=== PATIENT | male | born 2000 ===

== ENCOUNTER 2025-07-28 01:36 | Emergency (ER) | payer OTHER, SELFPAY ==
--- OUTSIDE RECORDS SUMMARY | 2009-10-08 12:11 | XMS_ITS | Continuity of Care Document ---
Author Organization [facility] Address [address] [place] [address] Phone Care Team Providers Care Electrical Panel Builder Name Role Phone Unavailable Unavailable Unavailable Allergies, Adverse Reactions, Alerts Substance Reaction Status Criticality No Known allergies Medications Medication Instructions Dosage Effective Dates (start - stop) Status Comments ProAir HFA 90 mcg/Actuation Aerosol Inhaler 1-2 PUFFS Q2-4 HRS prn cough - Active Aerochamber Max - Mask Medium for use with inhaler - Active Procedures Procedure Date Screening visual acuity,raymundo bilat Pure tone hearing screen, air 9 Screening visual acuity,raymundo bilat Office/outpatient visit,est, mod 2008 Flu vac, split, 3+ years, intramusc Immuniz admnin, 1 vac, sngl/combo Preventive checkup, est,5-11 yrs 2007 Flu vac, split, 3+ years, intramusc Immuniz admnin, 1 vac, sngl/combo Preventive checkup, est,5-11 yrs 2006 Immuniz admnin, 1 vac, sngl/combo Varicella virus vac, live, subcut Pure tone hearing screen, air 7 TB intradermal test Screening visual acuity,raymundo bilat Urinalysis, non-automated, w/scope Advance Directives Directive Yes / No Effective Date File Name No Information Encounters Encounter Description Practice Location Reason(s) For Visit Diagnoses Date Provider Providers Copied on Encounter [facility], [address], [place], [place], [id number], [place] tel:[phone] [facility] Practice No Information 9 No Information Office/outpat ient visit,est, mod [facility], [address], [place], [place], [id number], [place] tel:[phone] [facility] Pediatrics cough (chief complaint)c heck hearing (chief complaint)c heck vision (chief complaint) REFRACTION DISORDER NECCOUGH VARIANT ASTHMA 9 No Information [facility], [address], [place], [place], [id number], [place] tel:[phone] [facility] Practice flu vaccine (chief complaint) No Information 9 No Information Preventive checkup, est,5-11 yrs [facility], [address], [place], [place], [id number], [place] tel:[phone] [facility] Family Practice physical exam (chief complaint)f mariam inj (chief complaint) [facility] EXAMND VAC HMOPHLUS INFLNCande [facility] EXAM 8 No Information Preventive checkup, est,5-11 yrs [facility], [address], [place], [place], [id number], [place] tel:[phone] [facility] Pediatrics well visit (chief complaint) No Information 7 No Information [facility], [address], [place], [place], [id number], [place] tel:[phone] [facility] Practice lab test (chief complaint)w ic form (chief complaint) ARTHROPATHY NOS-UNSPEC 7 No Information Family History Family Member Type Diagnosis Age At Onset No Information Immunizations Vaccine Date Status Comments Flu Vaccine, with pres (3yrs and older) administered Source: New Immuniza tion Record Flu Vaccine, with pres (3yrs and older) administered Source: New Immuniza tion Record varicella administered Source: New Imm unization Record polio, inactivated (IPV) administered Lashonda rce: New Immunization Record DTaP administered Source: New Imm unization Record MMR administered Source: New Imm unization Record polio, inactivated (IPV) administered Lashonda rce: New Immunization Record DTaP administered Source: New Imm unization Record Comvax administered Source: New Imm unization Record MMR administered Source: New Imm unization Record varicella administered Source: New Imm unization Record pneumo (under 5) (PCV) administered Sourc e: New Immunization Record DTaP administered Source: New Imm unization Record pneumo (under 5) (PCV) administered Sourc e: New Immunization Record polio, inactivated (IPV) administered Lashonda rce: New Immunization Record DTaP administered Source: New Imm unization Record Comvax administered Source: New Imm unization Record pneumo (under 5) (PCV) administered Sourc e: New Immunization Record polio, inactivated (IPV) administered Lashonda rce: New Immunization Record DTaP administered Source: New Imm unization Record Comvax administered Source: New Imm unization Record Payers Payer name Insurance type Covered republican ID Authorreaa apollo[id number] Social History Type Description Quantity Date Captured Comments Sex Male Smoking Status No Information Chief Complaint And Reason For Visit No Information Reason For Referral Reason For Referral No Information History Of Present Illness Encounter Date Complaint History Of Prese nt Illness No Information Functional Status Date Functional Assessmen t No Information Instructions Date Instruction Additional Infor mation No Information Assessments Type Assessment Date No Information Patient Care Teams Name Effective Dates (start - stop) Status Members No Information
[2025-07-28 01:40] VITALS: BP 118/68; PULSE 85; RESP 20; TEMP 36.7; O2SAT 99; BMI 30.4
[2025-07-28 02:15] LABS: MANUAL DIFF FLAG NO
[2025-07-28 02:16] LABS: Hematocrit 43.3 % (42.0-52.0); Hemoglobin 15.7 g/dl (14.0-18.0); Imm Gran Abs Auto 0.03 X10*3/uL (0.00-0.03); Imm Gran Pct Auto 0.4 % (0.0-0.4); Lymphocytes Absolute Auto 2.4 X10*3/uL (1.2-4.9); Mean Corpuscular HGB Conc 36.3 g/dl (31.0-36.0); Mean Corpuscular Hemoglobin 29.6 pg (27.0-33.0); Mean Corpuscular Volume 81.7 fL (80.0-98.0); NRBC Abs Auto 0.000 X10*3/uL (0.0-0.012); NRBC Pct Auto 0.0 /100WBC (0.0-0.2); Platelet Count 205 X10*3/uL (160-400); Red Blood Count 5.30 X10*6/uL (4.60-5.80); White Blood Count 7.5 X10*3/uL (4.8-10.8)
--- OUTSIDE RECORDS SUMMARY | 2025-07-28 02:36 | XMS_ITS | Clinical Summary ---
Author Organization [facility] Address [address] [place] [id number] Care Team Providers Care Bat Carrier Name Role Phone Holly Amador PA-C Primary Care Provider Allergies Active Allergy Reactions Criticality Noted Date Comments Nka 06/15/2016 Medications Medication Sig Dispensed Refills Start Date End Date Status acetaminophen (TYLENOL) 325 MG tablet Take by mouth every 6 (six) hours as needed for Pain Reported on 08/02/2017 0 Active ibuprofen (ADVIL,MOTRIN) 800 MG tablet Take by mouth every 6 (six) hours as needed for Pain Reported on 08/02/2017 0 Active Active Problems Problem Noted Date Diagnosed Date Sprain of anterior cruciate ligament of right kn ee 06/28/2017 Immunizations Name Administration Dates Next Due DTaP 03/14/2007, 4,2002,08/15,2002 HIB (PRP-T) ActHIB / Hiberix - 4 dose series 02/01/2004,2002,2002,06/15 HPV Quadrivalent 05/01/2015 Hepatitis A (Pediatric) 02/28/2014,06/25/2011 Hepatitis B (Pediatric / Ado lescent) (inactive) 01/30/2003,2002,2002 IPV 03/14/2007, 2,2002,06/15 Influenza TIV (IM) (inactive) 11/17/2011, 006 MMR 11/26/2006,07/06/2003 Meningococcal Conjugate (Menveo) 02/28/2014 Pneumococcal Conjugate PCV7 08/08/2004,0 01/30/2003,2002,06/15 Tdap 02/28/2014 Varicella 11/26/2006,07/06/2003 Family History Medical History Relation Name Comments No Sig Med Hx Brother 2 Hypertension Mother Relation Name Status Comments Brother 1 Rahul Alive Brother 2 Father Alive Mother Alive Social History Tobacco Use Types Packs/Day Years Used Date Smoking Tobacco: Never Smokeless Tobacco: Never Alcohol Use Standard Drinks/Week Comments No 0 (1 standard drink = 0.6 oz pur e alcohol) Sex and Gender Information Value Date Recorded Sex Assigned at Not on file Gender Identity Not on file Sexual Orientation Not on file Last Filed Vital Signs Vital Sign Reading Time Taken Comments Blood Pressure 108/72 09/29/2017 8:08 AM EST Pulse 73 09/29/2017 8:08 AM EST Temperature 36.8 C (98.2 F) 09/29/2017 8:08 AM EST Respiratory Rate 18 09/29/2017 8:08 AM EST Oxygen Saturation 98% 09/29/2017 8:08 AM EST Inhaled Oxygen Concentration - - Weight 111.6 kg (246 lb) 09/29/2017 8:08 AM EST Height 174 cm (5' 8.5 ) 09/29/2017 8:08 AM EST Body Mass Index 36.86 09/29/2017 8:08 AM EST Plan of Treatment Health Maintenance Due Date Last Done Comments Hepatitis C Screening 2002 COVID-19 Vaccine (#1) 2002 Depression Screening 06/23/2018 06/23/2017 Preventative Health Evaluation 2020 DTap / Tdap / Td (7 - Td or Tdap) 02/29/2024 02/28/2014, 03/14/2007, 02/01/2004, Additional history exists Influenza Vaccine (#1) 2025 11/17/2011, 2005 Hepatitis B Vaccines Completed 01/30/2003, 2002, 2002 Pneumococcal Vaccine Completed 08/08/2004, 01/30/2003, 2002, Additional history exists RSV Ped < 20 months Aged Out No longe r eligible based on patient's age to complete this topic Care Teams Bat Carrier Relationship Specialty Start Date End Date Holly Amador PA-C PCP - General Family Medicine 05/01/15
--- OUTSIDE RECORDS SUMMARY | 2025-07-28 02:36 | XMS_ITS | Clinical Summary ---
Author Organization [employer] [facility] Address [address] [address] Care Team Providers Care Inventory Control Assistant Name Role Phone Holly Amador Primary Care Provider [phone] Allergies No known active allergies Medications guaiFENesin (MUCINEX) 600 mg Ta12 Take 600 mg by mouth every 12 (twelve) hours. Active pseudoephedrine (SUDAFED) 30 MG tablet Take 30 mg by mouth every 4 (four) hours as needed for congestion. Active cetirizine (ZyrTEC) 10 MG tablet Take 10 mg by mouth daily. Active guaiFENesin (ROBITUSSIN) 100 mg/5 mL syrup Take 200 mg by mouth 3 (three) times a day as needed for cough. Active Social History Tobacco Use Types Packs/Day Years Used Date Smoking Tobacco: Never Smokeless Tobacco: Never Sex and Gender Information Value Date Recorded Sex Assigned at Not on file Legal Sex Male 5:52 PM EDT Gender Identity Not on file Sexual Orientation Not on file Last Filed Vital Signs Vital Sign Reading Time Taken Comments Blood Pressure 124/80 04/02/2018 2:39 PM EDT Pulse 73 04/02/2018 2:39 PM EDT Temperature 37 C (98.6 F) 04/02/2018 2:39 PM EDT Respiratory Rate 16 04/02/2018 2:39 PM EDT Oxygen Saturation 98% 04/02/2018 2:39 PM EDT Inhaled Oxygen Concentration - - Weight 113 kg (250 lb) 04/02/2018 2:39 PM EDT Height - - Body Mass Index - - Plan of Treatment Health Maintenance Due Date Last Done Comments Depression: Screening Annually using PHQ-2/9 in Adults 18 yrs or above (or HM Modifier)([facility]) 2020 Hepatitis C Virus Infection in Adolescents and Adults: Screening (or Modifier) ([facility] ) 2020 SDOH Screening Reminder: Annually for all adults ([facility]) 2020 Tobacco Smoking Cessation: i n Adults excluding Women: Behavioral and Pharmacotherapy Interventions ([facility]) 2020 DTaP/Tdap/Td Vaccines ([facility]) (7 - Td or Tdap) 02/29/2024 02/28/2014, 03/14/2007, 02/01/2004, Additional history exists Flu Vaccination: Yearly for ages 18mos through 64 years (or Modifier)([facility]) 06/08/2025 COVID-19 Vaccine Screening: Initial Series and Booster Status ([facility]) ( season) 2025 Zoster/Shingles Vaccine Series Screening: Adults aged 18+ yrs (or HM Modifiers)([facility]) (1 of 2) 2052 11/26/2006, 07/06/2003 Pneumococcal Vaccination Screening: Pts 0-19 & 19-49 yrs of age ([facility]) Aged Out No longer eligible based on patient's age to complete this topic Medical Devices Not on file Care Teams Inventory Control Assistant Relationship Specialty Start Date End Date Holly Amador PA [address] [place] [address] PCP - General Family Medicine 02/07/18
--- OUTSIDE RECORDS SUMMARY | 2025-07-28 02:36 | XMS_ITS | Clinical Summary ---
Author Organization [facility] Address [address] [place] [address] Care Team Providers Care Chiropractic Care Name Role Phone Itzel Winter DO Primary Care Provider [phone] Encounters Date Type Department Care Team Description 07/16/[address] [phone] Itzel Winter DO Establish Care; nose bleeds; Headache from Last 3 Months Social History Tobacco Use Types Packs/Day Years Used Date Smoking Tobacco: Never Assessed Sex and Gender Information Value Date Recorded Sex Assigned at Male 07/16/2025 4:13 PM EDT Legal Sex Male 4:07 PM EDT Gender Identity Male 07/16/2025 4:13 PM EDT Sexual Orientation Not on file Plan of Treatment Upcoming Encounters Date Type Department Care Team (Late st Contact Info) Description 08/06/2025 4:00 PM EDT Office Visit [address] [phone] Itzel Winter DO [address] [place], [place] [phone] In Person with Physician Health Maintenance Due Date Last Done Comments Blood Pressure 2002 Depression Screening 2006 Meningococcal B Vaccines (1 of 2 - Standard) 2018 Hepatitis C Screening 2020 COVID-19 Vaccine ( - season) 2025 Influenza Vaccine (#1) 2025 11/17/2011, 2005 DTaP,Tdap,and Td Vaccines (8 - Td or Tdap) 04/23/2035 04/23/2025, 02/28/2014, 03/14/2007, Additional history exists Pneumococcal Vaccine: Pediatrics (0 to 5 Years) and At-Risk Patients (6 to 64 Years) Aged Out 08/08/2004, 01/30/2003, 2002, Additional history exists No longer eligible based on patient's age to complete this topic Meningococcal Vaccines Aged Out 02/28/2014 No lo nger eligible based on patient's age to complete this topic Insurance [place] [address] [facility] Care Teams Chiropractic Care Relationship Specialty Start Date End Date Itzel Winter DO [address] [place], [place] [phone] PCP - General Family Practice 07/16/25
--- OUTSIDE RECORDS SUMMARY | 2025-07-28 02:36 | XMS_ITS | Clinical Summary ---
Author Organization [facility] Address [address] [place] [address] Phone Care Team Providers Care Transportation Maintenance Operator Name Role Phone Gilberto Lou MD Primary Care Provider Allergies No known active allergies Medications No known medications Immunizations Immunization Administration Dates Next Due Tdap 04/23/2025 Social History Tobacco Use Types Packs/Day Years Used Date Smoking Tobacco: Never Smokeless Tobacco: Never Tobacco Cessation:Counseling Given: Not Answered Alcohol Use Standard Drinks/Week Comments Not Currently 0 (1 standard drink = 0.6 oz pur e alcohol) Education Answer Date Recorded Are you interested in more education? Not on issac e 04/24/2025 Are you concerned about learning? Not on file 04/24/2025 No 04/24/2025 No 04/24/2025 Digital Access Answer Date Recorded No 04/24/2025 No 04/24/2025 Reliable internet access at home? Not on file 04/24/2025 Device with a working camera? Not on file Intimate Partner Violence Answer Date R ecorded Are you denied basic needs s uch as food, clothing, or medical care? No 04/23/2025 In the past 12 months have y ou been in a relationship with a person who hurts, threatens, or tries to control you? No 04/23/2025 Are you denied basic needs s uch as food, clothing, or medical care? No 04/23/2025 In the past 12 months have y ou been in a relationship with a person who hurts, threatens, or tries to control you? No 04/23/2025 Sex and Gender Information Value Date Recorded Sex Assigned at Male 04/23/2025 10:53 PM EDT Legal Sex Male 9:33 PM EDT Gender Identity Male 04/23/2025 10:53 PM EDT Sexual Orientation Straight 04/23/2025 10 :53 PM EDT Last Filed Vital Signs Vital Sign Reading Time Taken Comments Blood Pressure 113/80 04/24/2025 1:14 AM EDT Pulse 55 04/24/2025 1:14 AM EDT Temperature 37 C (98.6 F) 04/24/2025 1:14 AM EDT Respiratory Rate 18 04/24/2025 1:14 AM EDT Oxygen Saturation 99% 04/24/2025 1:14 AM EDT Inhaled Oxygen Concentration - - Weight 99.8 kg (220 lb) 04/23/2025 9:44 PM EDT Height 172.7 cm (5' 8 ) 04/23/2025 9:44 PM EDT Body Mass Index 33.45 04/23/2025 9:44 PM EDT Plan of Treatment Not on file Medical Devices Not on file Insurance O POS EPO [employer] O POS EPO AET HMO POS EPO HMO POS EPO AET HMO POS EPO [employer] O POS EPO Care Teams Transportation Maintenance Operator Relationship Specialty Start Date End Date Gilberto Lou MD [address] [place] [address] PCP - General Internal Medicine 04/23/25 Additional Source Comments The information contained in this document represents components of the legal health record. It is not the complete legal health record.[facility]
--- OUTSIDE RECORDS SUMMARY | 2025-07-28 02:37 | XMS_ITS | Clinical Summary ---
Author Organization [facility] Address [address] [place] [address] Care Team Providers Care Global Supply Chain Director Name Role Phone Holly Amador PA-C Primary Care Provider [phone] Allergies No known active allergies Medications No known medications Active Problems Problem Noted Date Diagnosed Date Acute pain of right knee 06/02/2017 Social History Tobacco Use Types Packs/Day Years Used Date Smoking Tobacco: Never Smokeless Tobacco: Never Sex and Gender Information Value Date Recorded Sex Assigned at Not on file Legal Sex Male 4:15 PM EDT Gender Identity Not on file Sexual Orientation Not on file Last Filed Vital Signs Vital Sign Reading Time Taken Comments Blood Pressure 129/74 11/07/2021 8:23 AM EST Pulse 90 11/07/2021 8:23 AM EST Temperature 36.1 C (97 F) 11/07/2021 8:23 AM EST Respiratory Rate - - Oxygen Saturation 99% 11/07/2021 8:23 AM EST Inhaled Oxygen Concentration - - Weight 93 kg (205 lb) 11/07/2021 8:23 AM EST Height 172.7 cm (5' 8 ) 11/07/2021 8:23 AM EST Body Mass Index 31.17 11/07/2021 8:23 AM EST Plan of Treatment Health Maintenance Due Date Last Done Comments Hepatitis C Virus Screening 2002 HIV Screening 2015 HPV Vaccines (1 - Male 3-dos e series) 2017 DTaP/Tdap/Td Vaccines (1 - Tdap) 2021 Hepatitis B Vaccines (1 of 3 - 19+ 3-dose series) 2021 Influenza Vaccine 06/08/2025 COVID-19 Vaccine (4 - 2024-2 6 season) 2025 10/24/2021, 03/04/2021, 02/11/2021 Pneumococcal Vaccine: Pediatric (0-5 Years) and At-Risk Patients (6 to 49 Years) Aged Out No longer eligible b ased on patient's age to complete this topic Insurance HMO/POS HMO/POS Care Teams Global Supply Chain Director Relationship Specialty Start Date End Date Holly Amador PA-C [address] [place] [address] PCP - General Internal Medicine 05/31/17
[2025-07-28 02:39] LABS: Alanine Aminotransferase 64 U/L (0-40); Albumin Level 4.7 g/dL (3.5-5.0); Alkaline Phosphatase 83 U/L (39-117); Anion Gap 16 (12-20); Aspartate Amino Transferase 47 U/L (5-37); Blood Urea Nitrogen 23 mg/dL (9-16); Calcium 8.9 mg/dL (8.4-10.2); Carbon Dioxide 19 mmol/L (22-29); Chloride 111 mmol/L (96-108); Creatinine Clr Calc Pharmacy 107.3; Estimated Glomerular Filt Rate > 60; Potassium 3.6 mmol/L (3.3-5.1); Sodium 142 mmol/L (135-145); Total Protein 7.6 g/dL (6.5-8.0)
[2025-07-28 05:44] VITALS: BP 103/53; PULSE 95; RESP 14; TEMP 36.8; O2SAT 98
--- NOTE | 2025-07-28 05:52 | ED.GENADULT ---
HPI - General Adult General Chief complaint: ETOH/Substance Use Stated complaint: ETOH Time Seen by Provider: 07/28/25 05:18 Source: patient Limitations: other (Intoxication) History of Present Illness ED Provider: Josette Arias PA-C HPI narrative: 25-year-old male presents intoxicated. Patient states ?I drank too much?. Patient was with friends, he began vomiting, had a nosebleed which has resolved, they in turn called EMS to the scene. Related Data Allergies Allergy/AdvReac Type Severity Reaction Status Date / Time No Known Allergies Allergy Verified 07/28/25 01:42 Review of Systems Review of Systems: Yes all other systems are reviewed and are negative Constitutional: Constitutional: Denies fatigue and Denies fever(s) ENT: Reports epistaxis Gastrointestinal: Gastrointestinal: Reports nausea and Reports vomiting Endocrine: Endocrine: Denies fatigue PMFSH Past Medical History Attestation statement: The following information was validated with the patient. Social History Social History Alcohol intake: current Smoked in Last 30 Days: No Use of substances other than those prescribed or required for medical reasons: No Advance Directives: No Advance Directives Information Provided: Yes Do you have a plan to hurt others: No Plan Physical Exam ED Vital Signs: Vital Signs - 24 hr 07/28/25 01:40 07/28/25 05:44 Temperature 98.1 F 98.3 F Pulse Rate 85 95 Respiratory Rate 20 14 Blood Pressure 118/68 103/53 L Pulse Oximetry 99 98 Oxygen Delivery Method Room Air Room Air BMI result Body Mass Index 30.4 Const Other: Alert Orientation/consciousness: patient oriented x3 HENMT Other: Alcohol halitosis Resp Effort & Inspection: normal respiratory effort Cardio Other: Normal peripheral perfusion Skin Other: Warm dry no rash Neuro Other: Unsteady gait General: patient oriented x3, no focal motor deficits and CN's II-XI intact bilaterally Psych Other: Cooperative, is intoxicated Medical Decision Making Medical Decision Making [facility] Narrative: 25-year-old male presents intoxicated. Patient states ?I drank too much?. Patient was with friends, he began vomiting, had a nosebleed which has resolved, they in turn called EMS to the scene. No chronic issues History: Per patient I have considered the following differential diagnoses: Alcohol intoxication , alcoholic gastritis, alcohol poisoning Plan: Screening labs in process, the patient is not actively vomiting, his nosebleed resolved, I will monitor him in the emergency department until he is clinically sober. I have independently reviewed the following tests: Labs: No leukocytosis, not anemic, no electrolyte abnormality, ethanol 171 Differential Diagnosis Differential Diagnoses: The differential diagnosis associated with the presentation includes See medical decision-making Admission/Observation Consideration of admission/observation: Escalation of care including admission/observation considered Not applicable Lab Data MDM Lab Attestation statement: I reviewed the patient's lab results. 07/28/25 02:11 07/28/25 02:11 Labs: Lab Results 07/28/25 Range/Units 02:11 WBC 7.5 (4.8-10.8) X10*3/uL RBC 5.30 (4.60-5.80) X10*6/uL Hgb 15.7 (14.0-18.0) g/dl Hct 43.3 (42.0-52.0) % MCV 81.7 (80.0-98.0) fL MCH 29.6 (27.0-33.0) pg MCHC 36.3 H (31.0-36.0) g/dl RDW 12.7 (11.0-16.0) % Plt Count 205 (160-400) X10*3/uL MPV 10.0 (9.4-12.4) fL Immature Gran % (Auto) 0.4 (0.0-0.4) % Neut % (Auto) 56.5 (45-73) % Lymph % (Auto) 31.7 (20-40) % Randolph % (Auto) 8.4 (2-11) % Eos % (Auto) 1.9 (0-4) % Baso % (Auto) 1.1 (0-2) % Lymph # (Auto) 2.4 (1.2-4.9) X10*3/uL Randolph # (Auto) 0.6 (0.1-1.2) X10*3/uL Eos # (Auto) 0.1 (0.0-0.4) X10*3/uL Baso # (Auto) 0.1 (0.0-0.2) X10*3/uL Abs Immat Gran (auto) 0.03 (0.00-0.03) X10*3/uL Absolute Neuts (auto) 4.2 (2.0-8.3) x10*3/uL Absolute Nucleated RBC 0.000 (0.0-0.012) X10*3/uL Nucleated RBC % (auto) 0.0 (0.0-0.2) /100WBC Sodium 142 (135-145) mmol/L Potassium 3.6 (3.3-5.1) mmol/L Chloride 111 H (96-108) mmol/L Carbon Dioxide 19 L (22-29) mmol/L Anion Gap 16 (12-20) BUN 23 H (9-16) mg/dL Creatinine 1.17 (0.5-1.4) mg/dL Estim Creat Clear Calc 107.3 Estimated GFR > 60 Random Glucose 107 (60-115) mg/dL Calcium 8.9 (8.4-10.2) mg/dL Total Bilirubin 0.5 (0.0-1.0) mg/dL AST 47 H (5-37) U/L ALT 64 H (0-40) U/L Alkaline Phosphatase 83 (39-117) U/L Total Protein 7.6 (6.5-8.0) g/dL Albumin 4.7 (3.5-5.0) g/dL Ethyl Alcohol 171 mg/dL Discharge Plan Discharge Clinical Impression: Alcoholic intoxication Patient Disposition: Home, Self-Care Instructions: Alcohol Intoxication (ED) Additional Instructions: You were found to be intoxicated. You were monitored in the emergency department for your safety until you were clinically sober. Follow up with primary care as needed. Interventions: ED Discharge Assessment Last Done: 07/28/25 06:27 Discharge Date/Time: 07/28/25 06:30 Print Language: Indian
[2025-07-28 06:27] VITALS: BP 103/53; PULSE 95; RESP 14; TEMP 36.8; O2SAT 98
== END 2025-07-28 06:30 | disposition home or self-care (01) ==
PROVIDERS: Emergency Provider Emergency Medicine
DX: F10.129 Alcohol abuse with intoxication, unspecified (principal); Y90.6 Blood alcohol level of 120-199 mg/100 ml; R11.10 Vomiting, unspecified; R04.0 Epistaxis
CPT/HCPCS: 36415; 80053; 80307; 85025; 99283; 99284